=== PATIENT | male | born 1980 | race Caucasian/White ===

== ENCOUNTER 2018-01-12 14:00 | Emergency (ER) | payer MEDICAID, OTHER ==
[~2018-01-12] VITALS: Ht 175.3 cm; Wt 75.3 kg
[2018-01-12] MEDS ORDERED: METOCLOPRAMIDE 10MG TABLET ONE (14:26)
[2018-01-12] MEDS ORDERED: DIPHENHYDRAMINE 25 MG CAPSULE ONE (14:26)
[2018-01-12] MEDS ORDERED: METOCLOPRAMIDE 10MG TABLET PO PRN (14:30)
[2018-01-12] MEDS ORDERED: DIPHENHYDRAMINE 25 MG CAPSULE PO ONE (14:30)
[2018-01-12] MEDS ORDERED: KETOROLAC 30 MG/1 ML ONE (14:54)
[2018-01-12] MEDS ORDERED: DEXAMETHASONE 4 MG TABLET ONE (14:55)
[2018-01-12] MEDS ORDERED: DEXAMETHASONE 4 MG TABLET PO ONE (15:00)
[2018-01-12] MEDS ORDERED: KETOROLAC 30 MG/1 ML IM ONE (15:00)
[2018-01-12] MEDS ORDERED: MAGNESIUM SULFATE PMX 2GM/50ML 50 ML IV ONE (15:30)
[2018-01-12] MEDS ORDERED: METOCLOPRAMIDE 5 MG/ML, 2ML IVPush ONE (15:30)
[2018-01-12] MEDS ORDERED: SODIUM CHLORIDE 0.9% 1,000ML IVBOLUS ONE (15:30)
[2018-01-12] MEDS ORDERED: METOCLOPRAMIDE 5 MG/ML, 2ML ONE (15:34)
[2018-01-12 16:51] VITALS: BP 131/77
== END 2018-01-12 18:04 | disposition home or self-care (01) ==
LOC: ED 16:46
DX: G43.909 Migraine, unspecified, not intractable, without status migrainosus (principal); I10 Essential (primary) hypertension; H53.149 Visual discomfort, unspecified
CPT/HCPCS: 96365; 96366; 96372; 99285; J1885; J3475; J7030; Q0163